=== PATIENT | female | born 1990 | race Hispanic/Latino ===

== ENCOUNTER → 2020-06-22 13:23 | Outpatient (CLI) | payer MEDICAID, SELFPAY ==
--- NOTE | ~2020-06-22 | US_ITS ---
EXAMINATION: US OB <=14 wk fetus w TV DATE: 06/22/2020 14:29 INDICATION: Routine care. TECHNIQUE: Real-time transabdominal and transvaginal pelvic ultrasound was performed. COMPARISON: None. FINDINGS: TRANSABDOMINAL ULTRASOUND: The uterus measures 10.3 x 5.2 x 7.0 cm. TRANSVAGINAL ULTRASOUND: There is an intrauterine gestational sac. A yolk sac is identified. The fet al crown rump length measures 1.1 cm, which correlates with an estimated gestational age of 7 weeks a nd 1 day(s) (+/-) 5 day(s). heart motion is not identified by M-mode Doppler. The right ovary m easures 2.6 x 1.9 x 2.8 cm. The left ovary measures 3.0 x 1.9 x 2.5 cm. There is no free fluid in the pelvis. IMPRESSION: 1. demise. Reviewed, dictated and finalized at location A. ONAL OPERATIONS MANAGER IMPRESSION: 1. demise.
== END ==
PROVIDERS: Visit Provider Obstetrics & Gynecology
DX: Z34.91 Encounter for supervision of normal pregnancy, unspecified, first trimester (principal); Z3A.01 Less than 8 weeks gestation of pregnancy
CPT/HCPCS: 76801; 76817

== ENCOUNTER 2020-07-05 09:21 | Day surgery (SDC) | payer MEDICAID, SELFPAY ==
[2020-07-05] VITALS (12 sets, daily range): BP systolic 77–119; BP diastolic 48–95; PULSE 61–99; RESP 14–18; TEMP 36.4; O2SAT 94–100
--- NOTE | ~2020-07-05 | US_ITS ---
EXAMINATION: US OB <= 14 weeks fetus DATE: 07/05/2020 11:14 INDICATION: Miscarriage. TECHNIQUE: Real-time transabdominal pelvic ultrasound was performed. COMPARISON: Ultrasound 06/22/2020 FINDINGS: The uterus measures 12.3 x 7.3 x 5.6 cm. There is no intrauterine gestational sac. The endometrial c omplex is thickened to 17 mm without internal vascular flow. The right ovary measures 2.2 x 2.3 x 1.5 cm. The left ovary measures 2.1 x 2.1 x 2.2 cm. There is no free fluid in the pelvis. IMPRESSION: 1. Thickened endometrial complex without internal vascular flow, which may be retained products of c onception or hematoma. Reviewed, dictated and finalized at location A. CREW LEADER IMPRESSION: 1. Thickened endometrial complex without internal vascular flow, which may be retained products of conception or hematoma.
[2020-07-05 09:41] LABS: Glucose Point of Care 119 (65-105)
--- NOTE | 2020-07-05 09:41 | PC.NURSE ---
After patient became unresponsive in bed and IV was inserted and vital signs taken. Patient was noted to be diaphoretic. Removed from clothes at that time and noted patient has copious amount of bright red blood in pad. Patient was approximately 9 weeks when noted fetus had no viable heart tones and given a pill . States bleeding started at approx [address] Ness in room and live games dealer used on patient. IVF NS given verbal order at this time.
--- NOTE | 2020-07-05 09:44 | ED.GENADULT ---
HPI - General Adult General Chief complaint: Vaginal Bleeding Stated complaint: vaginal bleeding, 9 weeks Time Seen by Provider: 07/05/20 09:43 Source: patient History of Present Illness HPI narrative: Patient is a 29 y/o female complaining of heavy vaginal bleeding starting 3-4 hours ago. She states her bleeding consists of clots. Moving around makes her bleeding worse. She also has some lower abdominal pain and back pain. She is states that she is and was told that her is not viable. She was given some medication to help pass the products of conception. Patient does not speak Sammarinese and interview is done through video diplomatic interpreter/translator. Related Data Home Medications Medication Instructions Recorded Confirmed No Home Medications 07/05/20 07/05/20 Allergies Allergy/AdvReac Type Severity Reaction Status Date / Time No Known Allergies Allergy Verified 07/05/20 09:46 Review of Systems Constitutional: Constitutional: Denies chills, Denies fever(s), Denies headache(s) and Denies weakness Eyes: Eyes: Denies blurry vision ENT: Denies headache(s) and Denies neck pain Cardiovascular: Cardiovascular: Denies chest pain and Denies dyspnea Respiratory: Respiratory: Denies cough and Denies dyspnea Gastrointestinal: Gastrointestinal: Reports abdominal pain, Denies diarrhea, Denies nausea and Denies vomiting Genitourinary: Genitourinary: Reports abnormal vaginal bleeding, Denies hematuria and Denies dysuria Musculoskeletal: Musculoskeletal: Reports back pain and Denies neck pain Neurologic: Reports dizziness, Denies headache(s) and Denies weakness PMFSH Past Medical History Medical History (Updated 07/05/20 @ 13:39 by Aurea Ness MD) Homozygous MTHFR mutation [id number] SAB (spontaneous ) T2DM (type 2 diabetes mellitus) Social History Social History Smoking status: Never smoker Alcohol intake: never Substance use: never Substance use type: does not use Living arrangements: with family Occupation/Education: unemployed Gender identity (if verbalized by the patient): Female Sexual Orientation (if Verbalized by the Patient): Straight or Heterosexual Spiritual care concerns: No Agree to blood products: Yes Exam Const: General: no acute distress and well developed Orientation/consciousness: oriented to person, oriented to place, oriented to time and patient oriented x3 HENMT: Head: normocephalic Ears: external ears normal General nose exam: Normal external nose present Eyes: General: appearance normal, both eyes and all related structures Conjunctivae: conjunctivae normal Neck: Neck: normal visual inspection and full ROM Chest: Chest palpation & inspection: normal inspection of the chest and no tenderness Resp: Effort & Inspection: normal respiratory effort Auscultation: clear to auscultation bilaterally Cardio: Rate: regular rate Rhythm: regular rhythm GI: GI Palp: No abdominal tenderness and Yes Soft to palpation : External Female Exam: normal external appearance Speculum Exam - Vagina: vaginal bleeding (large amount of blood and clots in vaginal canal) Speculum Exam - Cervix: Other cervical findings present (cervix not well visualized due to active) Skin: General skin exam: normal color and turgor normal Neuro: General: oriented to person, oriented to place, oriented to time and patient oriented x3 Cognition (Neuro): normal cognition Extrem: General: normal to inspection, full ROM and no pedal edema Psych: Appearance: grossly normal Mental Status: mental status grossly normal Affect: normal affect Course Consultations Consultation #1: Discussed with Dr. Hagan, who is made aware of patient's condition. Will wait for US results. Date: 07/05/20 Time: 11:08 Consultation #2: Discussed with Dr. Hagan, who states that he will evaluate the patient in ED. Date: 07/05/20 Time: 11:43 Consul
[2020-07-05] MEDS: SODIUM CHLORIDE 0.9% IV 1,000 ML 999 ML (09:47)
[2020-07-05 09:48] LABS: Basophils Absolute Auto 0.1 K/mm3 (0.0-0.1); Basophils Percent Auto 0.5 % (0.2-1.2); Eosinophils Absolute Auto 0.4 K/mm3 (0-0.3); Hematocrit 34.1 % (37.0-47.0); Hemoglobin 10.8 g/dL (12.0-15.0); Immature Granulocyte Absolute 0.12 K/mm3 (0.00-0.031); Immature Granulocyte Percent A 0.6 % (0-0.5); Lymphocytes Absolute Auto 5.21 K/mm3 (0.9-3.2); Mean Corpuscular HGB Conc 31.7 g/dl (32-36); Mean Corpuscular Hemoglobin 24.1 pg (26-34); Mean Corpuscular Volume 75.9 fl (80-100); Mean Platelet Volume 9.9 fl (7.4-10.4); Monocytes Absolute Auto 1.1 K/mm3 (0.1-0.6); Monocytes Percent Auto 5.6 % (2.6-8.5); Neutrophils Absolute Auto 13.1 K/mm3 (1.3-6.7); Neutrophils Percent Auto 65.3 % (45.5-73.1); Platelet Count Result 445 k/mm3 (150-375); Red Blood Count 4.49 M/mm3 (4.2-5.4); Red Cell Distribution Width 16.1 % (11.5-14.5); White Blood Count 20.1 K/mm3 (4.5-10.0)
[2020-07-05] MEDS: SODIUM CHLORIDE 0.9% IV 1,000 ML 999 ML IV CONT ×2 (10:17→12:31)
[2020-07-05 10:21] LABS: Alanine Aminotransferase 20 U/L (4-35); Albumin Level 4.1 g/dL (3.5-5.1); Alkaline Phosphatase 81 U/L (38-126); Anion Gap 10 mmol/L (8-16); Aspartate Amino Transferase 30 U/L (14-36); Bilirubin,Total 0.4 mg/dL (0.2-1.3); Blood Urea Nitrogen 11 mg/dL (7-17); Carbon Dioxide 21 mmol/L (22-30); Chloride 107 mmol/L (98-107); Estimated CRCL calculation 114 ml/min; Estimated Glomerular Filt Rate > 60; Glucose 129 mg/dL (65-105); Sodium 138 mmol/L (137-145)
[2020-07-05 10:50] LABS: Hematocrit 27.4 % (37.0-47.0); Hemoglobin 8.5 g/dL (12.0-15.0)
--- NOTE | 2020-07-05 11:08 | PC.NURSE ---
Patient taken to US at this time.
--- NOTE | 2020-07-05 12:16 | WPDANESEPP ---
Anes - Eval Pre Procedure Procedure: suction d&c Date/Time: 07/05/20 12:16 Surgeon: cruz Pre Op Diagnosis: Retained products of Conception Patient Data Age: 29 Gender: F Height: 1.57 m Weight: 77.3 kg Last Vital Signs Temp 36.4 C L 07/05/20 09:36 Pulse 91 07/05/20 12:12 Resp 18 07/05/20 12:12 BP 100/68 07/05/20 12:12 Pulse Ox 100 07/05/20 12:12 Allergies Allergy/AdvReac Type Severity Reaction Status Date / Time No Known Allergies Allergy Verified 07/05/20 09:46 Home Medications Medication Instructions Recorded Confirmed Type No Home Medications 07/05/20 07/05/20 History Laboratory Tests 07/05/20 07/05/20 07/05/20 09:35 09:41 09:42 WBC 20.1 K/mm3 H K/mm3 (4.5-10.0) RBC 4.49 M/mm3 M/mm3 (4.2-5.4) Hgb 10.8 g/dL L g/dL (12.0-15.0) Hct 34.1 % L % (37.0-47.0) MCV 75.9 fl L fl (80-100) MCH 24.1 pg L pg (26-34) MCHC 31.7 g/dl L g/dl (32-36) RDW 16.1 % H % (11.5-14.5) Plt Count 445 k/mm3 H k/mm3 (150-375) MPV 9.9 fl fl (7.4-10.4) Immature Gran % (Auto) 0.6 % H % (0-0.5) Neut % (Auto) 65.3 % % (45.5-73.1) Lymph % (Auto) 26.0 % % (18.3-44.2) Burt % (Auto) 5.6 % % (2.6-8.5) Eos % (Auto) 2.0 % % (0-4.4) Baso % (Auto) 0.5 % % (0.2-1.2) Lymph # (Auto) 5.21 K/mm3 H K/mm3 (0.9-3.2) Burt # (Auto) 1.1 K/mm3 H K/mm3 (0.1-0.6) Eos # (Auto) 0.4 K/mm3 H K/mm3 (0-0.3) Baso # (Auto) 0.1 K/mm3 K/mm3 (0.0-0.1) Abs Immat Gran (auto) 0.12 K/mm3 H K/mm3 (0.00-0.031) Absolute Neuts (auto) 13.1 K/mm3 H K/mm3 (1.3-6.7) Absolute Nucleated RBC 0.0 K/mm3 K/mm3 (0.0-0.012) Nucleated RBC % 0.0 % % (0.0-0.2) Sodium 138 mmol/L mmol/L (137-145) Potassium 4.0 mmol/L mmol/L (3.4-5.0) Chloride 107 mmol/L mmol/L (98-107) Carbon Dioxide 21 mmol/L L mmol/L (22-30) Anion Gap 10 mmol/L mmol/L (8-16) BUN 11 mg/dL mg/dL (7-17) Creatinine 0.60 mg/dL L mg/dL (0.7-1.0) Estim Creat Clear Calc 114 ml/min ml/min Estimated GFR > 60 (59 - ) Glucose 129 mg/dL H mg/dL (65-105) POC Capillary Glucose 119 mg/dl H mg/dl (65-105) Calcium 9.0 mg/dL mg/dL (8.4-10.2) Total Bilirubin 0.4 mg/dL mg/dL (0.2-1.3) AST 30 U/L U/L (14-36) ALT 20 U/L U/L (4-35) Alkaline Phosphatase 81 U/L U/L (38-126) Total Protein 8.0 g/dL g/dL (6.3-8.2) Albumin 4.1 g/dL g/dL (3.5-5.1) Beta HCG, Quant Blood Type Antibody Screen Screen Baby's Blood Type Baby's GARRETT Doses of RhIg Required 07/05/20 07/05/20 07/05/20 09:42 09:42 10:34 WBC RBC Hgb 8.5 g/dL L g/dL (12.0-15.0) Hct 27.4 % L % (37.0-47.0) MCV MCH MCHC RDW Plt Count MPV Immature Gran % (Auto) Neut % (Auto) Lymph % (Auto) Burt % (Auto) Eos % (Auto) Baso % (Auto) Lymph # (Auto) Burt # (Auto) Eos # (Auto) Baso # (Auto) Abs Immat Gran (auto) Absolute Neuts (auto) Absolute Nucleated RBC Nucleated RBC % Sodium Potassium Chloride Carbon Dioxide Anion Gap BUN Creatinine Estim Creat Clear Calc Estimated GFR Glucose POC Capillary Glucose Calcium Total Bilirubin AST ALT
--- NOTE | 2020-07-05 12:48 | HP_ITS ---
This report was moved to the correct visit, [id number] on 07/09/20. Original report was signed by Lupillo Castaneda MD on 07/05/20 1306. H&P: HPI History of Present Illness Date/Time: 07/05/20 12:48 Chief Complaint: retained pproducts of conception Narrative: Deysi Bates is a 29 year old female HF with history of DM2 and dyslipidemia presents today in ER for SAB demise with excessive bleeding with retained POC per US She had 4 non-complicated vaginal deliveries Review of Systems Review of Systems: All systems reviewed & are unremarkable except as noted in HPI and below Constitutional: Constitutional: Reports no additional constitutional complaints Eyes: Eyes: Reports no additional eye complaints ENT: Reports system reviewed and no additional complaints, except as documented Cardiovascular: Cardiovascular: Reports no additional cardiovascular complaints Respiratory: Respiratory: Reports no additional respiratory complaints Gastrointestinal: Gastrointestinal: Reports no additional gastrointestinal complaints Genitourinary: Genitourinary: Reports no additional female genitourinary complaints Musculoskeletal: Musculoskeletal: Reports no additional musculoskeletal complaints Integumentary/Breasts: Skin/Breast: Reports system reviewed and no additional complaints, except as docu Neurologic: Reports system reviewed and no additional complaints, except as documented Psychiatric: Psychiatric: Reports no additional psychiatric complaints Endocrine: Endocrine: Reports no additional endocrine complaints Hematologic/Lymphatic: Hematologic/Lymphatic: Reports no additional hematologic/lymphatic complaints Allergic/Immunologic: Allergic/Immunologic: Reports no additional allergic/immunologic complaints [facility] Past Medical History Medical History (Updated 07/05/20 @ 13:05 by Lupillo Hagan MD) Homozygous MTHFR mutation [id number] SAB (spontaneous ) T2DM (type 2 diabetes mellitus) Social History Social History Smoking status: Never smoker Alcohol intake: never Substance use: never Substance use type: does not use Living arrangements: with family Occupation/Education: unemployed Gender identity (if verbalized by the patient): Female Sexual Orientation (if Verbalized by the Patient): Straight or Heterosexual Spiritual care concerns: No Agree to blood products: Yes Meds Home Medications and Allergies Home Medications Medication Instructions Recorded Confirmed Type No Home Medications 07/05/20 07/05/20 History Allergies Allergy/AdvReac Type Severity Reaction Status Date / Time No Known Allergies Allergy Verified 07/05/20 09:46 Exam Const: General: cooperative, healthy appearing, comfortable, no acute distress, well developed, alert, awake and Physically active Nutritional Appearance: average body habitus and well nourished Orientation/consciousness: patient oriented x3 Limitations: no limitations HENMT: Head: normal to inspection Ears: hearing grossly normal bilaterally General nose exam: Normal external nose present Face and sinus: normal facial exam Mouth: Yes Normal oral and palatal mucosa present Teeth and gingiva: dentition normal Throat: posterior oropharynx normal Eyes: General: appearance normal, both eyes and all related structures Pupils: Equal, round and reactive pupils present Neck: Neck: normal visual inspection and full ROM Chest: Chest palpation & inspection: normal inspection of the chest Breast/axilla
--- NOTE | 2020-07-05 13:06 | HP_ITS ---
This report was moved to the correct visit, [id number] on 07/09/20. Original report was signed by Lupillo Castaneda MD on 07/05/20 197. History and Physical Update Update Date/Time: 07/05/20 13:06 History and Physical has been reviewed, including an updated exam of the patient. There are NO changes in the patient's condition. Risks, benefits, and alternatives have been discussed and questions answered. Patient agrees to proceed with procedure. 29 y/o HF with history of DM2 and dyslipidemia presents today for SAB. She had 4 non-complicated vaginal deliveries Report Initialized date/time: Lupillo Hagan MD 07/05/201306 Electronically signed by: Lupillo Hagan MD 07/05/201306 [facility]
--- NOTE | 2020-07-05 13:36 | OP_ITS ---
This report was moved to the correct visit, [id number] on 07/09/20. Original report was signed by Lupillo Castaneda MD on 07/05/201335. Procedure Note - Detailed Date of procedure: 07/05/20 Pre-op diagnosis: Retained products of conception Post-op diagnosis: same Procedure performed: Carlos suction D&C with removal of products of conception Description of procedure: Patient was taken to the operating room after informed consent was obtained placed in supine position and given IV sedation. Placed in the dorsal lithotomy position prepped and then draped in the usual sterile fashion and a time-out was performed. The uterus measured 10 cm size by physical exam. Speculum was placed in the vagina and Allis clamp was placed onto the cervix. Products of conception were seen at the external os and were removed with ring forceps. And an 8 curved curette was placed in the intrauterine cavity. Suction curettage was then performed without difficulty and removal of retained products and the endometrial cavity. This was followed by sharp curettage of the endometrium which were confirmed removal of all products of conception. Intravenous Pitocin 40 units in a L was started in the OR and run wide open with great results of uterine contractility and no further bleeding. Patient tolerated procedure well was transferred to the PACU in stable condition Anesthesia: MAC Surgeon: Lupillo Hagan MD Carpenter Rough: assistant professor of philosophy x1 Estimated blood loss (mL): 100 IV fluids (mL): 1,000 Urine output (mL): 100 Drains: No Packing: No Pathology: yes (Products of conception) Complications: None Condition: stable Disposition: PACU Findings: Products of conception at the external os. Retained products of conception in the uterus. Firm uterus after curettage with oxytocin no further bleeding. Counts correct. Complications none specimens to pathology as above. To recovery room stable condition. was informed of the operative findings. Medication sent to pharmacy Report Initialized date/time: Lupillo Hagan MD 07/05/201335 Electronically signed by: Lupillo Hagan MD 07/05/201335 [facility]
== END 2020-07-05 12:15 ==
LOC: ANHED 09:57 → ANHSURGERY 12:16
PROVIDERS: Emergency Provider Emergency Medicine; PCP Internal Medicine; Visit Provider Obstetrics & Gynecology
DX: O03.4 Incomplete spontaneous abortion without complication (principal); Z3A.09 9 weeks gestation of pregnancy; O99.281 Endocrine, nutritional and metabolic diseases complicating pregnancy, first trimester; E72.12 Methylenetetrahydrofolate reductase deficiency; O24.111 Pre-existing type 2 diabetes mellitus, in pregnancy, first trimester; E11.9 Type 2 diabetes mellitus without complications
CPT/HCPCS: 59812; 36415; 76801; 80053; 82948; 84702; 85014; 85018; 85025; 85461; 88305; 96360; 96361; 99285; A9270; J0690; J2250; J2590; J2704; J3010; J7030; J7120

== ENCOUNTER 2020-11-18 19:07 | Emergency (ER) | payer BC, SELFPAY ==
--- NOTE | ~2020-11-18 | CT_ITS ---
EXAMINATION: CT brain wo con DATE: 11/18/2020 21:34 INDICATION: Syncope. TECHNIQUE: Computed tomography (CT) of the head was performed without intravenous contrast. The mA wa s adjusted according to patient size. Iterative reconstruction technique was employed. The dose-lengt h product was 529.67 mGy-cm. COMPARISON: None FINDINGS: There is no intracranial hemorrhage, acute infarction, or abnormal intracranial mass lesion . The ventricles are normal in size. The paranasal sinuses are clear. There is a trace right mastoid effusion. IMPRESSION: 1. Normal brain. Reviewed, dictated and finalized at location A. IMPRESSION: 1. Normal brain.
--- NOTE | ~2020-11-18 | XR_ITS ---
EXAMINATION: XR lumbar spine 2-3V DATE: 11/18/2020 22:16 INDICATION: Low back pain. TECHNIQUE: 3 views of lumbar spine were obtained. COMPARISON: None. FINDINGS: Bone alignment is normal. Vertebral body heights and intervertebral disc heights are normal . The facet joints are unremarkable. There is an intrauterine device in expected position. IMPRESSION: 1. Normal lumbar spine. Reviewed, dictated and finalized at location A. IMPRESSION: 1. Normal lumbar spine.
[2020-11-18 19:56] VITALS: BP 113/59; PULSE 84; RESP 16; TEMP 37.1; O2SAT 100
--- NOTE | 2020-11-18 21:20 | ECG_ITS ---
Measurements Intervals [place] Rate: 73 P: 33 UT: 146 QRS: 22 QRSD: 86 T: 3 QT: 365 QTc: 404 Interpretive Statements SINUS RHYTHM WITH SINUS ARRHYTHMIA BORDERLINE T WAVE ABNORMALITY- INFERIOR LEADS BASELINE WANDER- V3 BORDERLINE ECG Electronically Signed On 11-19-2020 6:20:42 CDT by Augustus Dorado D.O.
--- NOTE | 2020-11-18 21:21 | ED.SYNCOPE ---
HPI - Syncope General Chief Complaint: Syncope Stated Complaint: syncope Time Seen by Provider: 11/18/20 21:18 Source: patient Limitations: no limitations History of Present Illness HPI narrative: Patient is a 29-year-old female complaining of a syncopal episode prior to arrival. Patient states that she was having low back pain prior to the syncopal episode. Patient currently denies any symptoms. Denies any headache, dizziness, speech or visual disturbance, weakness, numbness, chest pain, shortness of breath, abdominal pain, nausea, vomiting, diarrhea, fever or chills. Related Data Allergies Allergy/AdvReac Type Severity Reaction Status Date / Time No Known Allergies Allergy Verified 07/05/20 09:46 Review of Systems Review of Systems: All systems reviewed & are unremarkable except as noted in HPI and below Constitutional: Constitutional: Denies body ache(s), Denies chills, Denies excessive sweating, Denies fatigue, Denies fever(s), Denies headache(s), Denies lethargy, Denies malaise, Denies weakness and Denies weight loss Eyes: Eyes: Denies blurry vision, Denies change in vision and Denies loss of vision ENT: Denies dizziness, Denies ear discharge, Denies headache(s), Denies lip swelling, Denies epistaxis, Denies nasal congestion, Denies neck pain, Denies throat swelling and Denies tongue swelling Cardiovascular: Cardiovascular: Denies chest pain, Denies chest pain at rest, Denies chest pain with activity, Denies diaphoresis, Denies rapid heart rate, Denies edema, Denies irregular heart rhythm, Denies lightheadedness, Denies palpitations, Denies dyspnea and Denies dyspnea on exertion Respiratory: Respiratory: Denies chest congestion, Denies cough, Denies hemoptysis, Denies dyspnea and Denies dyspnea on exertion Gastrointestinal: Gastrointestinal: Denies abdominal pain, Denies melena, Denies hematochezia, Denies diarrhea, Denies nausea, Denies vomiting and Denies hematemesis Musculoskeletal: Musculoskeletal: Denies abnormal gait, Denies deformity, Denies joint swelling, Denies limited range of motion, Denies neck pain and Denies numbness Neurologic: Denies Abnormal speech present, Denies abnormal gait, Denies confusion, Denies dizziness, Denies headache(s), Denies focal weakness, Denies loss of vision, Denies numbness, Denies Other visual disturbances, Denies Sensory deficit (Neuro) and Denies weakness Psychiatric: Psychiatric: Denies confusion, Denies depression, Denies auditory hallucinations, Denies homicidal ideation and Denies suicidal ideation Endocrine: Endocrine: Denies cold intolerance, Denies excessive sweating, Denies fatigue, Denies heat intolerance and Denies palpitations Hematologic/Lymphatic: Hematologic/Lymphatic: Denies easy bleeding and Denies easy bruising Allergic/Immunologic: Allergic/Immunologic: Denies lip swelling, Denies throat swelling and Denies tongue swelling PMFSH Past Medical History Medical History Homozygous MTHFR mutation C677T SAB (spontaneous ) T2DM (type 2 diabetes mellitus) Social History Social History Smoking status: Never smoker Alcohol intake: never Substance use: never Substance use type: does not use Gender identity (if verbalized by the patient): Female Spiritual care concerns: No Agree to blood products: Yes Exam Const: General: cooperative, healthy appearing, comfortable, no acute distress, well developed, alert and awake; No confusion Orientation/consciousness: oriented to person, oriented to place, oriented to time, patient oriented x3 and No confusion Limitations: no limitations HENMT: Head: normal to inspection, normocephalic and atraumatic Ears: hearing grossly normal bilaterally, TM normal on the right and TM normal on the left General nose exam: Normal external nose present, Normal nares present and No nasal discharge present Face an
--- NOTE | 2020-11-18 21:29 | PC.NURSE ---
Pt.to ct
--- NOTE | 2020-11-18 21:53 | ED.BACK ---
HPI - Back Pain/Injury General Chief Complaint: Back Pain/Injury Stated Complaint: syncope Time Seen by Provider: 11/18/20 21:18 Source: patient Mode of arrival: ambulatory Limitations: no limitations History of Present Illness HPI Narrative: Patient is a 29-year-old female complaining of low back pain after her chair broke and fell landing on her lower back. Patient admits to hitting the back of her head. Patient denies neck, chest, abdomen, pelvis, hip or any extremity pain/injury. Patient did not have a syncopal episode as said on the triage note. Timing: constant Severity: moderate Quality: dull Radiation: none Exacerbating factors: movement and walking Relieving factors: immobilization Associated symptoms: denies other symptoms Related Data Allergies Allergy/AdvReac Type Severity Reaction Status Date / Time No Known Allergies Allergy Verified 11/18/20 21:43 Review of Systems Review of Systems: All systems reviewed & are unremarkable except as noted in HPI and below Constitutional: Constitutional: Denies body ache(s), Denies chills, Denies excessive sweating, Denies fatigue, Denies fever(s), Denies headache(s), Denies lethargy, Denies malaise, Denies weakness and Denies weight loss Eyes: Eyes: Denies blurry vision, Denies change in vision and Denies loss of vision ENT: Denies dizziness, Denies ear discharge, Denies headache(s), Denies lip swelling, Denies epistaxis, Denies nasal congestion, Denies neck pain, Denies throat swelling and Denies tongue swelling Cardiovascular: Cardiovascular: Denies chest pain, Denies chest pain at rest, Denies chest pain with activity, Denies diaphoresis, Denies rapid heart rate, Denies edema, Denies irregular heart rhythm, Denies lightheadedness, Denies palpitations, Denies dyspnea and Denies dyspnea on exertion Respiratory: Respiratory: Denies chest congestion, Denies cough, Denies hemoptysis, Denies dyspnea and Denies dyspnea on exertion Gastrointestinal: Gastrointestinal: Denies abdominal pain, Denies melena, Denies hematochezia, Denies diarrhea, Denies nausea, Denies vomiting and Denies hematemesis Musculoskeletal: Musculoskeletal: Denies abnormal gait, Denies deformity, Denies joint swelling, Denies limited range of motion, Denies neck pain and Denies numbness Neurologic: Denies Abnormal speech present, Denies abnormal gait, Denies confusion, Denies dizziness, Denies headache(s), Denies focal weakness, Denies loss of vision, Denies numbness, Denies Other visual disturbances, Denies Sensory deficit (Neuro) and Denies weakness Psychiatric: Psychiatric: Denies confusion, Denies depression, Denies auditory hallucinations, Denies homicidal ideation and Denies suicidal ideation Endocrine: Endocrine: Denies cold intolerance, Denies excessive sweating, Denies fatigue, Denies heat intolerance and Denies palpitations Hematologic/Lymphatic: Hematologic/Lymphatic: Denies easy bleeding and Denies easy bruising Allergic/Immunologic: Allergic/Immunologic: Denies lip swelling, Denies throat swelling and Denies tongue swelling PMFSH Past Medical History Medical History Homozygous MTHFR mutation C677T SAB (spontaneous ) T2DM (type 2 diabetes mellitus) Social History Social History Smoking status: Never smoker Alcohol intake: never Substance use: never Substance use type: does not use Gender identity (if verbalized by the patient): Female Spiritual care concerns: No Agree to blood products: Yes Exam Const: General: cooperative, healthy appearing, comfortable, no acute distress, well developed, alert and awake; No confusion Orientation/consciousness: oriented to person, oriented to place, oriented to time, patient oriented x3 and No confusion Limitations: no limitations HENMT: Head: normal to inspection, normocephalic and atraumatic Ears: hearing grossly normal
--- NOTE | 2020-11-18 22:07 | PC.NURSE ---
Pt.to XR
[2020-11-18] MEDS: CYCLOBENZAPRINE HCL 10 MG TABLET PO (22:39)
[2020-11-18] MEDS: HYDROcodone/acetaminophen (*CRX) 5-325 MG TABLET 1 TAB PO (22:39)
[2020-11-18 23:41] VITALS: BP 121/87; PULSE 71; RESP 16; O2SAT 100
== END 2020-11-18 23:42 | disposition home or self-care (01) ==
PROVIDERS: Emergency Provider Emergency Medicine; PCP Internal Medicine
DX: S39.012A Strain of muscle, fascia and tendon of lower back, initial encounter (principal); S09.90XA Unspecified injury of head, initial encounter; E11.9 Type 2 diabetes mellitus without complications; W07.XXXA Fall from chair, initial encounter
CPT/HCPCS: 70450; 72100; 93005; 99284; A9270

== ENCOUNTER 2020-12-19 09:10 | Outpatient (CLI) | payer BC, SELFPAY ==
--- NOTE | 2020-12-19 09:19 | ECG_ITS ---
Measurements Intervals [place] Rate: 78 P: 39 GA: 155 QRS: 15 QRSD: 86 T: 14 QT: 373 QTc: 427 Interpretive Statements SINUS RHYTHM NORMAL ECG Electronically Signed On 12-19-2020 17:03:55 CDT by Augustus Dorado D.O.
== END 2020-12-19 09:11 | disposition home or self-care (01) ==
PROVIDERS: PCP Internal Medicine; Visit Provider Physician Assistant
DX: R07.89 Other chest pain (principal)
CPT/HCPCS: 93005

== ENCOUNTER 2022-03-29 10:43 | Emergency (ER) | payer BC, SELFPAY ==
[2022-03-29 11:08] VITALS: BP 130/78; PULSE 96; RESP 18; TEMP 36.4; O2SAT 100
[2022-03-29 12:11] LABS: Influenza A QL RT-PCR Positive (Negative); Influenza B QL RT-PCR Negative (Negative); SARS-CoV-2 RNA PCR Negative
--- NOTE | 2022-03-29 12:12 | ED.GENADULT ---
HPI - General Adult General Chief complaint: Upper Respiratory Infection Stated complaint: URI Time Seen by Provider: 03/29/22 11:50 History of Present Illness HPI narrative: 31-year-old female presenting to the emergency department for evaluation of bilateral earache, sore throat and upper respiratory symptoms. Patient states she did test herself for COVID at home and was negative Related Data Allergies Allergy/AdvReac Type Severity Reaction Status Date / Time No Known Allergies Allergy Verified 11/18/20 21:43 Review of Systems Review of Systems: CONSTITUTIONAL: See HPI EYES: Denies visual changes, redness, or discharge. ENT: Denies rhinorrhea, congestion, sore throat, or otalgia. CARDIOVASCULAR: Denies chest pain, palpitations, or edema. RESPIRATORY: See HPI GASTROINTESTINAL: Denies abdominal pain, nausea, vomiting, or diarrhea. GENITOURINARY: Denies dysuria or hematuria. SKIN: Denies rash or itching. MUSCULOSKELETAL: Denies back pain, joint pain, or myalgia. NEUROLOGIC: Denies headache, numbness, or weakness. 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 HEAD: normocephalic, atraumatic. EYES: PERRLA/EOMI, conjunctivae clear. NOSE: Normal no drainage EARS:TMS clear with good light reflex. THROAT: Pharynx clear, no exudate. NECK: Supple. No adenopathy, no masses. RESPIRATORY: Airway patent, respirations nonlabored. Clear to auscultation bilaterally, no rales, rhonchi, wheezing. CARDIOVASCULAR: Regular rate and rhythm without murmurs rubs or gallops. ABDOMINAL: Soft, nontender, nondistended, normal bowel sounds MUSCULOSKELETAL: Moves all extremities. Strength/ROM intact, No edema, No calf tenderness. NEURO: Alert. Cranial nerves II through XII intact. Grossly intact SKIN: Warm, dry. Normal Color Course Course Emergency Course: Patient did test positive for influenza a. Patient was updated on the results of her work-up and encouraged to have close follow-up with her primary care physician. Vital Signs Vital signs: Vital Signs Temperature 97.5 F L 03/29/22 11:08 Pulse Rate 96 03/29/22 11:08 Respiratory Rate 18 03/29/22 11:08 Blood Pressure 130/78 03/29/22 11:08 Pulse Oximetry 100 03/29/22 11:08 Oxygen Delivery Room Air 03/29/22 11:08 Temperature 98 F 03/29/22 12:49 Pulse Rate 83 03/29/22 12:49 Respiratory Rate 20 03/29/22 12:49 Blood Pressure 128/75 03/29/22 12:49 Pulse Oximetry 100 03/29/22 12:49 Oxygen Delivery Room Air 03/29/22 11:08 Medical Decision Making Vital Signs Vital Signs: Vital Signs Temperature 97.5 F L 03/29/22 11:08 Pulse Rate 96 03/29/22 11:08 Respiratory Rate 18 03/29/22 11:08 Blood Pressure 130/78 03/29/22 11:08 Pulse Oximetry 100 03/29/22 11:08 Oxygen Delivery Room Air 03/29/22 11:08 Temperature 98 F 03/29/22 12:49 Pulse Rate 83 03/29/22 12:49 Respiratory Rate 20 03/29/22 12:49 Blood Pressure 128/75 03/29/22 12:49 Pulse Oximetry 100 03/29/22 12:49 Oxygen Delivery Room Air 03/29/22 11:08 Lab Data Labs: Lab Results 03/29/22 Range/Units 11:19 Influenza A (RT-PCR) Positive (Negative) Influenza B (RT-PCR) Negative (Negative) SARS-CoV-2 RNA (RT-PCR) Negative Strep Screen Presumptive Negative *(Reference Ra
[2022-03-29 12:49] VITALS: BP 128/75; PULSE 83; RESP 20; TEMP 36.6; O2SAT 100
== END 2022-03-29 12:52 | disposition home or self-care (01) ==
PROVIDERS: Emergency Provider Emergency Medicine; PCP Internal Medicine
DX: J10.1 Influenza due to other identified influenza virus with other respiratory manifestations (principal)
CPT/HCPCS: 87081; 87502; 87880; 99283; U0003; U0005

== ENCOUNTER 2024-06-06 19:03 | Emergency (ER) | payer SELFPAY ==
--- NOTE | ~2024-06-06 | XR_ITS ---
EXAMINATION: XR chest 2V Exam Date/Time: 06/06/2024 19:47 MODELING AND SIMULATION ANALYST HISTORY: CP, CENTER OF CHEST FOR 3 DAYS Comparison: None. RESULT: Lines, tubes, and devices: None. Lungs and pleura: Low volumes with crowding, otherwise clear. Cardiomediastinal silhouette: Normal. Other: No acute osseous or upper abdominal finding. IMPRESSION: No acute cardiopulmonary process. Reviewed, dictated and finalized at location K. LING AND SIMULATION ANALYST
--- NOTE | 2024-06-06 19:04 | ECG_ITS ---
Test Date: 2024-06-06 19:39:05 Measurements Intervals [place] Rate: 86 P: 79 CO: 169 QRS: -10 QRSD: 85 T: -15 QT: 346 QTc: 415 Interpretive Statements SINUS RHYTHM WITH SINUS ARRHYTHMIA NONSPECIFIC ST AND T WAVE ABNORMALITY No previous ECG available for comparison Electronically Signed On 06-07-2024 16:47:15 READING AIDE by Bobbi Ashley M.D.
[2024-06-06 19:34] VITALS: BP 155/106; PULSE 100; RESP 16; TEMP 36.4; O2SAT 100
[2024-06-06 19:59] LABS: Basophils Absolute Auto 0.1 K/mm3 (0.0-0.1); Basophils Percent Auto 0.8 % (0.2-1.2); Eosinophils Absolute Auto 0.4 K/mm3 (0-0.3); Eosinophils Percent Auto 4.2 % (0-4.4); Hemoglobin 14.1 g/dL (12.0-15.0); Immature Granulocyte Absolute 0.04 K/mm3 (0.00-0.031); Immature Granulocyte Percent A 0.4 % (0-0.5); Lymphocytes Absolute Auto 2.55 K/mm3 (0.9-3.2); Mean Corpuscular HGB Conc 33.6 g/dl (32-36); Mean Corpuscular Hemoglobin 28.3 pg (26-34); Mean Corpuscular Volume 84.3 fl (80-100); Mean Platelet Volume 10.2 fl (7.4-10.4); Monocytes Absolute Auto 0.7 K/mm3 (0.1-0.6); Monocytes Percent Auto 7.4 % (2.6-8.5); Neutrophils Absolute Auto 5.7 K/mm3 (1.3-6.7); Neutrophils Percent Auto 60.2 % (45.5-73.1); Platelet Count Result 300 k/mm3 (150-375); Red Blood Count 4.98 M/mm3 (4.2-5.4); Red Cell Distribution Width 13.3 % (11.5-14.5); White Blood Count 9.5 K/mm3 (4.5-10.0)
[2024-06-06 20:05] LABS: Alanine Aminotransferase 18 U/L (6-35); Albumin Level 4.6 g/dL (3.5-5.1); Alkaline Phosphatase 89 U/L (38-126); Anion Gap 10 mmol/L (4-12); Aspartate Amino Transferase 24 U/L (14-36); Bilirubin,Total 0.5 mg/dL (0.2-1.3); Blood Urea Nitrogen 10 mg/dL (7-17); Calcium 9.1 mg/dL (8.4-10.2); Carbon Dioxide 26 mmol/L (22-30); Chloride 103 mmol/L (98-107); Estimated Glomerular Filt Rate > 60; Glucose 122 mg/dL (65-110); Lipase 76 U/L (23-300); Potassium 3.6 mmol/L (3.4-5.0); Sodium 139 mmol/L (137-145)
[2024-06-06 20:10] LABS: Prothrombin Time 13.4 Seconds (11.1-14.7)
[2024-06-06 20:11] LABS: Partial Thromboplastin Time 30.8 Seconds (22.3-36.8)
[2024-06-06 20:17] LABS: Troponin I < 0.012 ng/mL (0.000-0.034)
--- NOTE | 2024-06-06 22:29 | ECG_ITS ---
Test Date: 2024-06-06 22:35:45 Measurements Intervals [place] Rate: 74 P: 56 NM: 159 QRS: -5 QRSD: 86 T: -19 QT: 357 QTc: 396 Interpretive Statements SINUS RHYTHM NONSPECIFIC ST AND T WAVE ABNORMALITY Compared to ECG 06/06/2024 19:39:05 Sinus arrhythmia no longer present Electronically Signed On 06-07-2024 16:51:02 GENERATION TECHNOLOGIST by Bobbi Ashley M.D.
[2024-06-06 23:09] LABS: Troponin I < 0.012 ng/mL (0.000-0.034)
[2024-06-06 23:21] LABS: Influenza A QL RT-PCR Negative (Negative); Influenza B QL RT-PCR Negative (Negative); RSV RNA, RT-PCR Negative (Negative); SARS-CoV-2 RNA PCR Negative (Negative)
[2024-06-06 23:41] VITALS: O2SAT 99
[2024-06-06 23:45] VITALS: PULSE 64
[2024-06-06 23:56] VITALS: BP 152/87; PULSE 63; RESP 15; O2SAT 100
--- NOTE | 2024-06-07 00:05 | ED_ITS ---
HPI - General Adult General Chief complaint: Chest Pain Stated complaint: CP/N/PEREZ Time Seen by Provider: 06/06/24 20:14 History of Present Illness HPI narrative: Patient 33-year-old female who presents emergency department with chief complaint of chest pain nausea and headache. Patient reports over the last 3 days her blood blood pressure has been elevated and she has noticed that she has had some pressure in her chest the patient states that she had been on hypertension medications in the past but is currently not on any medications. The patient reports that her pain and nausea and headache have resolved Related Data Allergies Allergy/AdvReac Type Severity Reaction Status Date / Time No Known Allergies Allergy Verified 06/06/24 19:38 Review of Systems 2 Review of Systems: A 10 system review of systems was completed on the patient and is negative except for what is stated in the HPI. Nursing and ancillary documentation was reviewed. 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 HEAD: Normocephalic, atraumatic. EYES: PERRLA and EOMI. ENT: Nares clear, no rhinorrhea or epistaxis. Mucous membranes moist. NECK: Supple. CHEST: Clear to auscultation. No respiratory distress. HEART: Regular rate and rhythm. No murmur heard. Normal peripheral pulses. ABDOMEN: Soft, nontender, nondistended, normal active bowel sounds. EXTREMITIES: Normal range of motion. No edema. SKIN: Warm, dry, no rash. NEURO: No focal deficits. Alert and oriented x3. PSYCH: Normal mood and affect. Course Vital Signs Vital signs: Vital Signs Temperature 36.4 C 06/06/24 19:34 Pulse Rate 100 06/06/24 19:34 Respiratory Rate 16 06/06/24 19:34 Blood Pressure 155/106 H 06/06/24 19:34 Pulse Oximetry 100 06/06/24 19:34 Oxygen Delivery Room Air 06/06/24 19:34 Temperature 36.4 C 06/06/24 19:34 Pulse Rate 63 06/06/24 23:56 Respiratory Rate 15 06/06/24 23:56 Blood Pressure 152/87 H 06/06/24 23:56 Pulse Oximetry 100 06/06/24 23:56 Oxygen Delivery Room Air 06/06/24 23:41 Medical Decision Making MDM Narrative Medical decision making narrative: Differential diagnosis includes ACS, hypertensive urgency, uncontrolled hypertension Laboratory studies were obtained on the patient which were within normal limits troponin was 0 hours 3 hour COVID flu RSV are negative chest x-ray showed no acute abnormalities EKG showed no acute ischemic changes The patient will be discharged home to follow-up with her primary care provider will be instructed to keep a daily log of her blood pressure Vital Signs Vital Signs: Vital Signs Temperature 36.4 C 06/06/24 19:34 Pulse Rate 100 06/06/24 19:34 Respiratory Rate 16 06/06/24 19:34 Blood Pressure 155/106 H 06/06/24 19:34 Pulse Oximetry 100 06/06/24 19:34 Oxygen Delivery Room Air 06/06/24 19:34 Temperature 36.4 C 06/06/24 19:34 Pulse Rate 63 06/06/24 23:56 Respiratory Rate 15 06/06/24 23:56 Blood Pressure 152/87 H 06/06/24 23:56 Pulse Oximetry 100 06/06/24 23:56 Oxygen Delivery Room Air 06/06/24 23:41 Lab Data 06/06/24 19:45 06/06/24 19:45 Labs: Lab Results 06/06/24 06/06/24 Range/Units 19:45 22:37 WBC 9.5 (4.5-10.0) K/mm3 RBC 4.98 (4.2-5.4) M/mm3 Hgb 14.1 D (12.0-15.0) g/dL Hct 42.0 (37.0-47.0) % MCV 84.3 (80-100) fl MCH 28.3 (26-34) pg MCHC 33.6 (32-36) g/dl RDW 13.3 (11.5-14.5) % Plt Count 300 (150-375) k/mm3 MPV 10.2 (7.4-10.4) fl Immature Gran % (Auto) 0.4 (0-0.5) % Neut % (Auto) 60.2 (45.5-73.1) % Lymph % (Auto) 27.0 (18.3-44.2) % [place]ley % (Auto) 7.4 (2.6-8.5) % Eos % (Auto) 4.2 (0-4.4) % Baso % (Auto) 0.8 (0.2-1.2) % Lymph # (Auto) 2.55 (0.9-3.2) K/mm3 Donley # (Auto) 0.7 H (0.1-0.6) K/mm3 Eos # (Auto) 0.4 H (0-0.3) K/mm3 Baso # (Auto) 0.1 (0.0-0.1) K/mm3 Abs Immat Gran (auto) 0.04 H (0.00-0.031) K/mm3 Absolute Neuts (auto) 5.7 (1.3-6.7) K/mm3 Absolute Nucleated RBC 0.000 (0.0-0.012) K/mm3 Nucleated RBC % 0.0 (0.0-0.2) % PT 13.4 (11.1-14.7) Seconds INR 1.0 APTT 30.8 (22.3-36.8) Seconds Sodium 139 (137-145) mmol/L Potassium 3.6 (3.4-5.0) mmol/L Chloride 103 (98-107) mmol/L Carbon Dioxide 26 (22-30) mmol/L Anion Gap 10 (4-12) mmol/L BUN 10 (7-17) mg/dL Creatinine 0.52 L (0.7-1.0) mg/dL Estim Creat Clear Calc Not Reportable Estimated GFR > 60 (59 - ) Glucose 122 H (65-110) mg/dL Calcium 9.1 (8.4-10.2) mg/dL Total Bilirubin 0.5 (0.2-1.3) mg/dL AST 24 (14-36) U/L ALT 18 (6-35) U/L Alkaline Phosphatase 89 (38-126) U/L Troponin I < 0.012 < 0.012 (0.000-0.034) ng/mL Total Protein 8.0 (6.3-8.2) g/dL Albumin 4.6 (3.5-5.1) g/dL Lipase 76 (23-300) U/L Influenza A (RT-PCR) Negative (Negative) Influenza B (RT-PCR) Negative (Negative) RSV (RT-PCR) Negative (Negative) SARS-CoV-2 RNA (RT-PCR) Negative (Negative) Discharge Plan Discharge Clinical Impression: Atypical chest pain Patient Disposition: Home, Self-Care Condition: Stable Instructions: Antibiotic Form, Chest Pain (ED), Hypertension (ED) Additional Instructions: Your blood pressure was slightly elevated in the emergency department today. Is recommended that you follow-up with your primary care provider please keep a daily log of your blood pressure checking her blood pressure at the same time in the morning and in the evening each day please bring this to your primary care provider's office to determine whether you need to be started on chronic medications Patient Language: Tajik Prescriptions: No Action naproxen [Naprosyn] 500 mg tablet 500 mg PO BID PRN (Reason: pain) Qty: 10 0RF cyclobenzaprine 10 mg tablet 10 mg PO TID PRN (Reason: muscle spasm) Qty: 9 0RF ibuprofen 800 mg tablet 800 mg PO Q6H Qty: 60 1RF azithromycin 250 mg tablet See Rx Instructions .ROUTE .COMPLEX Qty: 6 0RF Rx Instructions: take 500 mg today (day 1), then 250 mg for 4 days (days 2-5) Follow-up/Referrals: Michael Olivera DO [Primary Care Provider] - Time of Disposition: 00:09
[2024-06-07 00:28] VITALS: BP 153/97; PULSE 65; RESP 17; O2SAT 100
[2024-06-07 00:29] VITALS: BP 153/97; PULSE 65; RESP 17; O2SAT 100
== END 2024-06-07 00:31 | disposition home or self-care (01) ==
LOC: ANHED 06-07 00:20
PROVIDERS: Student in an Organized Health Care Education/Training Program; Emergency Provider Emergency Medicine; PCP Internal Medicine
DX: R07.89 Other chest pain (principal); Z20.822 Contact with and (suspected) exposure to COVID-19; E11.9 Type 2 diabetes mellitus without complications; R94.31 Abnormal electrocardiogram [ECG] [EKG]
CPT/HCPCS: 36415; 71046; 80053; 83690; 84484; 85025; 85610; 85730; 87637; 93005; 99284

== ENCOUNTER 2025-05-11 13:02 | Emergency (ER) | payer SELFPAY ==
--- NOTE | ~2025-05-11 | XR_ITS ---
EXAMINATION: XR chest 1V portable COMPARISON: No comparisons available. HISTORY: pain FINDINGS: The lungs are clear, no effusion. No pneumothorax. Heart is normal size. Mediastinal and hilar contours are within normal limits. Bony thorax no acute abnormality. Miscellaneous: None Impression: No acute cardiopulmonary abnormality. Reviewed, dictated and finalized at location P. EAR AUXILIARY OPERATOR Impression: No acute cardiopulmonary abnormality.
[2025-05-11 13:05] VITALS: BP 174/116; PULSE 76; RESP 20; TEMP 36.8; O2SAT 99
[2025-05-11 13:16] VITALS: BP 154/97; PULSE 72; RESP 14; O2SAT 96
[2025-05-11] MEDS: METOCLOPRAMIDE HCL INJ 10 MG/2 ML VIAL IM (13:31)
--- NOTE | 2025-05-11 13:43 | ECG_ITS ---
Test Date: 2025-05-11 13:52:27 Measurements Intervals [place] Rate: 70 P: 30 NH: 148 QRS: 3 QRSD: 93 T: -1 QT: 361 QTc: 390 Interpretive Statements SINUS RHYTHM NONSPECIFIC T-WAVE ABNORMALITY- INFERIOR LEADS BASELINE ARTIFACT- I, II, AVR, AVL, AVF BORDERLINE ECG Compared to ECG 06/06/2024 22:35:45 NO SIGNIFICANT CHANGE Electronically Signed On 05-11-2025 15:42:51 RODEO PERFORMER by Augustus Dorado D.O.
[2025-05-11 14:30] LABS: Influenza A QL RT-PCR Negative (Negative); Influenza B QL RT-PCR Negative (Negative); RSV RNA, RT-PCR Negative (Negative); SARS-CoV-2 RNA PCR Negative (Negative)
[2025-05-11 14:35] LABS: BEDSIDEPREGUCG Negative (Negative)
[2025-05-11 14:58] VITALS: BP 148/99; PULSE 71; RESP 14; O2SAT 98
--- NOTE | 2025-05-11 15:44 | ED_ITS ---
HPI - Headache General Chief Complaint: Headache Stated Complaint: HEADACHE X8 DAY Time Seen by Provider: 05/11/25 13:16 History of Present Illness HPI Narrative: Patient presents here with headache ongoing for the last week, associated with nausea, sensitivity to light, feels like it is a pressure behind her eyes, she does also recently have a slight cough, some chest tightness and fevers. 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 EYES: EOMI, conjunctiva normal, PERRL ENT: Hearing grossly intact LUNGS: Nonlabored breathing. HEART: Regular rate and rhythm ABD: Soft, nontender to palpation EXT: Normal range of motion SKIN: No rashes or lesions. NEURO: Alert. Normal upper and lower extremity strength and sensation. Facial droop, speech is clear, gait is normal. PSYCH: Normal affect Course Vital Signs Vital signs: Vital Signs Temperature 98.2 F 05/11/25 13:05 Pulse Rate 76 05/11/25 13:05 Respiratory Rate 20 05/11/25 13:05 Blood Pressure 174/116 H 05/11/25 13:05 Pulse Oximetry 99 05/11/25 13:05 Oxygen Delivery Room Air 05/11/25 13:05 Temperature 98.2 F 05/11/25 13:05 Pulse Rate 71 05/11/25 14:58 Respiratory Rate 14 05/11/25 14:58 Blood Pressure 148/99 H 05/11/25 14:58 Pulse Oximetry 98 05/11/25 14:58 Oxygen Delivery Room Air 05/11/25 13:05 [facility] Narrative Medical decision making narrative: A 34-year-old female presents to the emergency department for headache. Patient is hemodynamically stable. No focal neurological or cranial nerve deficits on exam. No meningeal signs. The headache was gradual in onset, it is not exertional and does not appear consistent with subarachnoid hemorrhage or intra cranial bleeding. No trauma. Patient is given Reglan intramuscularly, dexamethasone p.o.. On reevaluation, the patient feels significantly better with the headache resolved. No neurological deficits. Patient is comfortable going home for outpatient follow-up with primary care physician and/or neurology and provided with strict return precautions, especially for worsening headaches, neck pain/stiffness, fever or weakness, numbness/tingling or persistent vomiting. Differential Diagnosis Differential Diagnosis: Lingering, tension headache, less likely subarachnoid or subdural without trauma Lab Data Labs: Lab Results 05/11/25 05/11/25 Range/Units 13:49 14:32 POC Urine HCG, Qual Negative (Negative) Influenza A (RT-PCR) Negative (Negative) Influenza B (RT-PCR) Negative (Negative) RSV (RT-PCR) Negative (Negative) SARS-CoV-2 RNA (RT-PCR) Negative (Negative) Imaging Data Radiologist's impression: ITS Impressions Chest X-Ray 05/11/25 14:10 Impression: No acute cardiopulmonary abnormality. Discharge Plan Discharge Clinical Impression: Headache Patient Disposition: Home Condition: Stable Instructions: Acute Headache (ED) Additional Instructions: Please follow-up with doctor, you can always come back to the ER if your symptoms worsen or return. Patient Language: Croatian Prescriptions: No Action naproxen [Naprosyn] 500 mg tablet 500 mg PO BID PRN (Reason: pain) Qty: 10 0RF cyclobenzaprine 10 mg tablet 10 mg PO TID PRN (Reason: muscle spasm) Qty: 9 0RF ibuprofen 800 mg tablet 800 mg PO Q6H Qty: 60 1RF azithromycin 250 mg tablet See Rx Instructions .ROUTE .COMPLEX Qty: 6 0RF Rx Instructions: take 500 mg today (day 1), then 250 mg for 4 days (days 2-5) Follow-up/Referrals: UNKNOWN,DOCTOR [Primary Care Provider]
== END 2025-05-11 14:59 | disposition home or self-care (01) ==
PROVIDERS: Emergency Provider Emergency Medicine
DX: R51.9 Headache, unspecified (principal); E11.9 Type 2 diabetes mellitus without complications; R94.31 Abnormal electrocardiogram [ECG] [EKG]
CPT/HCPCS: 71045; 81025; 87637; 93005; 96372; 99283; J2765; J8540